=== PATIENT | female | born 1950 | race Caucasian/White ===

== ENCOUNTER → 2020-02-07 09:43 | Outpatient (BNVA) | payer BC, SELFPAY | PROVIDERS: Family Provider Nurse Practitioner; Visit Provider Family Medicine | DX: E11.9 Type 2 diabetes mellitus without complications (principal); E78.1 Pure hyperglyceridemia; I10 Essential (primary) hypertension; F41.9 Anxiety disorder, unspecified; F32.9 Major depressive disorder, single episode, unspecified; B35.1 Tinea unguium; L82.1 Other seborrheic keratosis | CPT/HCPCS: 80053; 80061; 83036 ==

== ENCOUNTER → 2020-11-20 13:20 | Outpatient (BNVA) | payer MEDICARE, OTHER, SELFPAY | PROVIDERS: Family Provider Nurse Practitioner; Visit Provider Family Medicine | DX: I10 Essential (primary) hypertension (principal); E78.1 Pure hyperglyceridemia; R53.83 Other fatigue; E11.40 Type 2 diabetes mellitus with diabetic neuropathy, unspecified; F41.9 Anxiety disorder, unspecified; F32.9 Major depressive disorder, single episode, unspecified; E11.42 Type 2 diabetes mellitus with diabetic polyneuropathy; R25.2 Cramp and spasm; A09 Infectious gastroenteritis and colitis, unspecified | CPT/HCPCS: 80053; 80061; 82607; 82652; 83036; 83735; 84443; 85025 ==

== ENCOUNTER → 2021-03-05 17:44 | Outpatient (BNVA) | payer MEDICARE, OTHER, SELFPAY | PROVIDERS: Family Provider Nurse Practitioner; Visit Provider Family Medicine | DX: R11.0 Nausea (principal); F41.9 Anxiety disorder, unspecified; F32.9 Major depressive disorder, single episode, unspecified; I10 Essential (primary) hypertension; E78.1 Pure hyperglyceridemia; R25.2 Cramp and spasm; I83.813 Varicose veins of bilateral lower extremities with pain; Z86.16 Personal history of COVID-19; E11.42 Type 2 diabetes mellitus with diabetic polyneuropathy | CPT/HCPCS: 80048; 83036; 83735 ==

== ENCOUNTER → 2021-05-13 10:23 | Outpatient (BNVA) | payer MEDICARE, OTHER, SELFPAY | PROVIDERS: Family Provider Nurse Practitioner; Visit Provider Nurse Practitioner Family | DX: Z20.822 Contact with and (suspected) exposure to COVID-19 (principal) | CPT/HCPCS: 87635 ==

== ENCOUNTER → 2021-05-14 10:23 | Outpatient (BNVA) | payer MEDICARE, OTHER, SELFPAY | PROVIDERS: Family Provider Nurse Practitioner; Visit Provider Nurse Practitioner Family | DX: Z20.822 Contact with and (suspected) exposure to COVID-19 (principal) | CPT/HCPCS: 87635 ==

== ENCOUNTER → 2021-06-20 13:15 | Outpatient (BNVA) | payer MEDICARE, OTHER, SELFPAY | PROVIDERS: Family Provider Nurse Practitioner; Visit Provider Nurse Practitioner Family | DX: N39.0 Urinary tract infection, site not specified (principal) | CPT/HCPCS: 81000 ==

== ENCOUNTER 2021-07-30 12:59 | Emergency (ER) | payer MEDICARE, OTHER, SELFPAY ==
[2021-07-30 13:04] VITALS: BP 197/138; PULSE 56; O2SAT 96; BMI 30.9
--- NOTE | 2021-07-30 13:35 | PC.PHAR ---
pt unable to verify medications-medications entered are meds from what ext med history shows has been filled recently and what was entered on a previous entered med list
--- NOTE | 2021-07-30 13:39 | CT_ITS ---
WS: [id number] CT HEAD NONCONTRAST HISTORY: AMS TECHNIQUE: Contiguous axial imaging performed through the brain in 2.5 mm imaging. Bone and soft tiss ue windows. Sagittal and coronal reformats reviewed. All CT scans at [facility] use at least one of these dose optimization techniques: automated exposure control; mA and/or kV adjustment per pa tient size (includes targeted exams where dose is matched to clinical indication); or iterative recon struction. DLP: 1793.08 mGy.cm COMPARISON: None available. Large acute intraparenchymal hemorrhage centered in the RIGHT temporoparietal lobe. There is a large amount of surrounding edema. There is also a small to moderate subdural component. There is mixed den sity within the subdural component. There is complete effacement of the white matter predominantly th roughout the entire RIGHT cerebellum with 14 mm of midline shift. Near complete effacement of the RIG HT lateral ventricle with the aqueduct being narrowed and stenotic and compress. There is uncal herni ation. No definite intraparenchymal hemorrhage. No inferior displacement of cerebellar tonsils at thi s time. Paranasal sinuses: As visualized are clear. Mastoid air cells: Well pneumatized. Calvarium and scalp: Skull is intact with no soft tissue edema or swelling. CT/CT head wo con* [id number] IMPRESSION: 1. Large acute RIGHT frontotemporal parenchymal hemorrhage with subdural exten lilliana. Subdural component is mixed acute and chronic blood products. 2. Large amount of edema throughout the RIGHT cerebrum with 14 mm of midline s hift and near complete effacement of the RIGHT lateral ventricle and aqueduct. Notified Rojas Garcia DO at 07/30/2021 2:20 PM.
--- NOTE | 2021-07-30 13:39 | XRR_ITS ---
PROCEDURE INFORMATION: Exam: XR Chest Exam date and time: 07/30/2021 1:39 PM Age: 70 years old Clinical indication: Cough and dyspnea; Patient HX: History--ams, SOB; Additional info: Dyspnea/cough TECHNIQUE: Imaging protocol: XR of the chest. Views: 1 view. COMPARISON: No relevant prior studies available. FINDINGS: Lungs: Unremarkable. No consolidation. Pleural spaces: Unremarkable. No pleural effusion. No pneumothorax. Heart/Mediastinum: Unremarkable. No cardiomegaly. Bones/joints: Unremarkable. XR/XR chest 1V portable [id number] IMPRESSION: No acute findings. Radiation Dose CTDIVOL = (mGy): DLP = (mGy-cm)
[2021-07-30 13:49] LABS: Basophils # 0.1 10^3/uL (0.0-0.1); Basophils % 0.4 %; Eosinophils # 0.2 10^3/uL (0.0-0.8); Eosinophils % 1.7 %; Hematocrit 32.6 % (37.0-47.0); Hemoglobin 11.1 g/dL (11.5-15.3); Lymphocytes # 1.8 10^3/uL (0.8-4.8); Mean Corpuscular Hemoglobin 31.4 pg (28.0-34.0); Mean Corpuscular Volume 92.4 fl (81-99); Monocytes # 0.6 10^3/uL (0.2-0.9); Monocytes % 5.3 %; Neutrophils # 8.67 10^3/uL (1.8-7.7); Nucleated Red Blood Cells % 0 %; Platelet Count 209 10^3/cmm (130-400); Red Blood Count 3.53 10^6/uL (4.1-5.3); Red Cell Distribution Width 13.8 % (12.1-15.1); White Blood Count 11.4 10^3/uL (4.0-10.0)
[2021-07-30 13:57] LABS: Alanine Aminotransferase 10 U/L (0-33); Albumin Level 4.1 g/dL (3.5-5.2); Alkaline Phosphatase 56 IU/L (35-105); Anion Gap 16.7 (5-19); Aspartate Amino Transferase 17 U/L (0-32); Blood Urea Nitrogen 18 mg/dL (8-23); Calcium 8.9 mg/dL (8.5-10.5); Carbon Dioxide 23 mmol/L (22-29); Chloride 104 mmol/L (98-107); Creatine Phosphokinase 81 U/L (26-192); Globulin 2.7 g/dL (1.3-4.6); Glomerular Filtration Rate 71.1 mL/min (90-130); Glucose 186 mg/dL (65-115); Lipase 46 U/L (13-60); Osmolality Calculated 297 mOsm/kg (285-295); Potassium 3.7 mmol/L (3.5-5.1); Sodium 140 mmol/L (136-145); Total Bilirubin 0.4 mg/dL (0.15-1.2); Total Protein 6.8 g/dL (6.6-8.7)
[2021-07-30 13:59] LABS: Glucose Point of Care 176 mg/dL (70-110)
[2021-07-30 14:04] LABS: ABG PCO2 38.8 mmHg (35-45); ABG PH Result 7.44 (7.35-7.45); Alveolar-Arterial Oxygen Gradi 4.3 mmHg (5-10); Base Excess ABG 1.8 mmol/L (-2.0-2.0); Blood Gas Allen Test Pos; Blood Gas Sample Type Arterial; HGB O2 Sat 95.1 % (95-100); Ionized Calcium Level - ABG 1.1 mmol/L (1.1-1.4); Methemoglobin < 0.0 % (0.4-1.5); PO2 ABG 68.9 mmHg (80.0-100.0); Potassium Level - ABG 5.3 mmol/L (3.5-5.0); Total Hemoglobin 11.8 g/dL (12-16)
[2021-07-30 14:05] LABS: Blood Gas Operator Identificat ED; Blood Gas Sample Site Radial, right; Oxygen Device ROOM AIR
--- NOTE | 2021-07-30 14:20 | ED_ITS ---
HPI - Altered Mental Status General: Chief Complaint: Altered Mental Status Stated Complaint: AMS Time Seen by Provider: 07/30/21 13:03 History of Present Illness: HPI narrative: 70-year-old female presents to the emergency room via EMS. EMS reports that she was found by a bystander to law enforcement unresponsive in a car. Later with the family the last known well time was sometime around 1030 or 11:00 daughter at talked her by phone. On arrival here she will respond to painful stimuli and reaches toward it but otherwise no other significant response. Initially she had no difficulty with respirations. However later she became sonorous see below. There is no evidence externally of trauma. MD complaint: decreased responsiveness Onset (ago): unknown Severity: severe Consistency of symptoms: Getting Worse Review of Systems General: Reports: ROS unobtainable due to mental status PFSH ED PFSH: Medical History Anxiety and depression Asymptomatic varicose veins Chronic constipation Diabetic neuropathy Essential hypertension History of COVID-19 Hypertriglyceridemia Type 2 diabetes mellitus Surgical History H/O adenoidectomy Hx of tonsillectomy S/P cholecystectomy Family History Mother CAD (coronary artery disease) Social History Smoking and tobacco status: never smoked Second hand smoke exposure: No Alcohol intake: never History of recent travel: No Current gender identity: Female Female Reproductive History: Spontaneous abortions: No Physical Exam HENMT: COMMON NORMALS: normocephalic and atraumatic HEAD & SCALP: normocephalic and atraumatic Neck/C-Spine: COMMON NORMALS: full ROM, no lymphadenopathy, supple and no JVD Resp: COMMON NORMALS: normal respiratory effort, No retractions, No use of accessory muscles and clear to auscultation bilaterally AUSCULTATION: clear to auscultation bilaterally Cardio: COMMON NORMALS: no JVD, regular rhythm and No murmurs present (Cardio) RATE: bradycardic RHYTHM: regular rhythm GI: COMMON NORMALS: Soft to palpation and No hepatosplenomegaly present AUSCULTATION: Yes normoactive bowel sounds PALPATION: Yes Soft to palpation, No Tenderness to palpation present (GI), No Guarding due to palpation present (GI) and Yes No hepatosplenomegaly present Extremity: COMMON NORMALS: normal to inspection, capillary refill normal, no clubbing, cyanosis or edema, no calf tenderness and no pedal edema Skin: COMMON NORMALS: no rashes or lesions noted GENERAL SKIN EXAM: no rashes or lesions noted Procedures Intubation Time out performed: Yes sedative: Etomidate Mg Given: 20 paralytic: Rocuronium Mg Given: 50 Laryngoscope: fiber optic video scope Assist Device Used: fiber optic device ET Tube Size: 7.5 ET Tube Uncuffed: No Tube Secured Depth (cm): 24 Tube Secured Location: teeth Tube Placement Confirmation: visualized tube passing through cords, equal breath sounds bilaterally, no breath sounds over epigastrium and confirmation by capnometry Patient Tolerated Procedure: well Intubation Complications: none Course Vital Signs: Vital signs: Vital Signs Pulse Rate 56 L 07/30/21 13:04 Respiratory Rate 14 07/30/21 14:59 Blood Pressure 197/138 07/30/21 13:04 Pulse Oximetry 96 07/30/21 13:04 MDM - Altered Mental Status MDM Narrative: Medical decision making narrative: CT of the head showing to large intraparenchymal bleed with a 14 mm shift. Patient was started on sodium nitroprusside she was noted to have begin to have a sonorous respirations developed severe hypertension bradycardia she was electively intubated without any complications. Started on propofol. She sees just prior to intubation was given a gram of Keppra. After intubation initially her blood pressures in the 140s we titrate up on a propofol and sodium nitroprusside her pressure suddenly dropped to 90 systolic sodium nitroprusside and the propofol were cut in half her pressure increased to around 10 7-1 10 systolic. Discussed with the family initially this daughter via phone eventually the was able to arrive. They wish to have a full code discussed with neurosurgery at [facility] they accept however they advised that they are unlikely to offer any treatment other than comfort cares was advised that this still wishes to be transported on the possibility that they may offer some form of treatment. He is fully aware of her prognosis at this point. Lab Data: Labs: Lab Results 07/30/21 07/30/2121 13:13 13:13 13:13 WBC 11.4 10^3/uL H 10 ^3/uL (4.0-10.0) RBC 3.53 10^6/uL L 10 ^6/uL (4.1-5.3) Hgb 11.1 g/dL L g/dL (11.5-15.3) Hct 32.6 % L % (37.0-47.0) MCV 92.4 fl fl (81-99) MCH 31.4 pg pg (28.0-34.0) MCHC 34.0 g/dL g/dL (30.0-36.0) RDW 13.8 % % (12.1-15.1) Plt Count 209 10^3/cmm 10^3 /cmm (130-400) MPV 11.0 fL H fL (7.4-10.4) Neut % (Auto) 76.0 % % Lymph % (Auto) 16.0 % % [place] % (Auto) 5.3 % % Eos % (Auto) 1.7 % % Baso % (Auto) 0.4 % % Neut # (Auto) 8.67 10^3/uL H 10 ^3/uL (1.8-7.7) Lymph # (Auto) 1.8 10^3/uL 10^3/ uL (0.8-4.8) [place] # (Auto) 0.6 10^3/uL 10^3/ uL (0.2-0.9) Eos # (Auto) 0.2 10^3/uL 10^3/ uL (0.0-0.8) Baso # (Auto) 0.1 10^3/uL 10^3/ uL (0.0-0.1) Nucleated RBC % (a uto) 0 % % Nucleated RBCs # 0.0 /100WBC /100W BC Sodium 140 mmol/L mmol/L (136-145) Potassium 3.7 mmol/L mmol/L (3.5-5.1) Chloride 104 mmol/L mmol/L (98-107) Carbon Dioxide 23 mmol/L mmol/L (22-29) Anion Gap 16.7 (5-19) BUN 18 mg/dL mg/dL (8-23) Creatinine 0.8 mg/dL mg/dL (0.5-0.9) GFR Calculation 71.1 mL/min L mL/ min (90-130) Glucose 186 mg/dL H mg/dL (65-115) POC Glucose Calculated Osmolal ity 297 mOsm/kg H mOs m/kg (285-295) Lactic Acid 1.0 mmol/L mmol/L (0.5-2.2) Calcium 8.9 mg/dL mg/dL (8.5-10.5) Total Bilirubin 0.4 mg/dL mg/dL (0.15-1.2) AST 17 U/L U/L (0-32) ALT 10 U/L U/L (0-33) Alkaline Phosphata se 56 IU/L IU/L (35-105) Creatine Kinase 81 U/L U/L (26-192) Total Protein 6.8 g/dL g/dL (6.6-8.7) Albumin 4.1 g/dL g/dL (3.5-5.2) Globulin 2.7 g/dL g/dL (1.3-4.6) Lipase 46 U/L U/L (13-60) Urine Color Urine Appearance Urine pH Ur Specific Gravit y Urine Protein Urine Glucose (UA) Urine Ketones Urine Blood Urine Nitrate Urine Bilirubin Urine Urobilinogen Ur Leukocyte [place] ase 07/30/21 07/30/21 13:44 13:57 WBC RBC Hgb Hct MCV MCH MCHC RDW Plt Count MPV Neut % (Auto) Lymph % (Auto) [place] % (Auto) Eos % (Auto) Baso % (Auto) Neut # (Auto) Lymph # (Auto) [place] # (Auto) Eos # (Auto) Baso # (Auto) Nucleated RBC % (a uto) Nucleated RBCs # Sodium Potassium Chloride Carbon Dioxide Anion Gap BUN Creatinine GFR Calculation Glucose POC Glucose 176 mg/dL H mg/dL (70-110) Calculated Osmolal ity Lactic Acid Calcium Total Bilirubin AST ALT Alkaline Phosphata se Creatine Kinase Total Protein Albumin Globulin Lipase Urine Color Other (Yellow) Urine Appearance Clear (CLEAR) Urine pH 7 (5-7) Ur Specific Gravit y 1.005 (1.005-1.030) Urine Protein Neg (Negative) Urine Glucose (UA) 1+ H (Normal) Urine Ketones Negative (Negative) Urine Blood Neg (Negative) Urine Nitrate Negative (Negative) Urine Bilirubin Neg (Negative) Urine Urobilinogen Norm mg/dL mg/dL (Negative) Ur Leukocyte [place] ase Negative (Negative) Critical Care Time Critical Care Time: Critical Care Time: Yes Total Critical Care Time: 30 Attestation: This case had a high probability of a clinically significant, sudden, or life threatening deterioration of this patient's condition which required my full and direct attention, intervention and personal management. Procedures done not included in this time Discharge Plan Discharge Patient Disposition: Xfer Short-Term Hosp Clinical Impression: Subarachnoid hemorrhage Condition: Stable Patient Instructions: Opioid Safety Coding Level of Care Code ED Finishing Range Operator for Niels Escobar
[2021-07-30 14:36] LABS: Add Urine Microscopic? NO; Charge for UA Resulting for Rev
[2021-07-30 14:38] LABS: Bilirubin Urine Neg (Negative); Blood Urine Neg (Negative); Glucose Urine UA 1+ (Normal); Ketones Urine Negative (Negative); Leukocyte Esterase Urine Negative (Negative); Nitrate Urine Negative (Negative); Protein Urine Neg (Negative); Specific Gravity, Urine 1.005 (1.005-1.030); Urine Appearance Clear (CLEAR); Urine Color Other (Yellow); Urobilinogen Urine Norm (Negative); pH Urine 7 (5-7)
[2021-07-30] MEDS: rocuronium 10 mg/mL INJ 5mL 50 MG IVP (14:40)
--- NOTE | 2021-07-30 14:45 | XR_ITS ---
WS: [id number] PORTABLE CHEST HISTORY: post intubation COMPARISON: 07/30/2021 Endotracheal tube and nasogastric tubes have been placed and are in good position. Tip of the NG tube is well below the GE junction. Lungs are clear and well expanded. No pleural effusion or pneumothorax. Cardiac size: Normal. Mediastinum/Aorta: Normal mediastinum. No osseous abnormality seen. Status post cholecystectomy. XR/XR chest 1V portable [id number] IMPRESSION: 1. Satisfactory placement of the endotracheal tube. 2. Satisfactory placement of the nasogastric tube. 3. No pneumonia.
[2021-07-30 14:59] VITALS: RESP 14
[2021-07-30] MEDS: propofol 1,000 MG/100 ML INJ 19.6 MG IV (16:18)
--- NOTE | 2021-07-30 16:18 | PC.NURSE ---
PT INTUBATED AT APPROX. 1443. SIZE 4 TUBE USED FOR INTUBATION. LUNG SOUNDS EQUAL BILATERALLY. OG TUBE INSERTED @ APPROX 1458. X-RAY CONFIRMED PLACEMENT OF BOTH.
--- NOTE | 2021-07-30 16:40 | PC.NURSE ---
VITALS PRINTED AND PLACED IN PAPER CHART TO BE SCANNED.
[2021-07-31 07:54] LABS: Thyroid Stimulating Hormone 1.07 uIU/mL (0.27-4.20)
== END 2021-07-30 15:38 | disposition short-term general hospital (02) ==
PROVIDERS: Emergency Provider Family Medicine
DX: I60.8 Other nontraumatic subarachnoid hemorrhage (principal); Z86.16 Personal history of COVID-19
CPT/HCPCS: 31500; 36416; 36600; 51702; 70450; 71045; 80051; 80053; 81003; 82330; 82550; 82805; 82962; 83605; 83690; 84443; 85025; 94002; 94799; 96365; 96366; 96367; 99291; J1953; J2704; J3490